=== PATIENT | female | born 1945 | race Caucasian/White ===

== ENCOUNTER → 2016-11-28 | Outpatient (CLI) | payer MEDICARE, OTHER ==
[~2016-11-28] MED LIST: ACETAMINOPHEN325 MG PO; ACIPHEX20 MG PO; ADVAIR 250-501 EAC1 IH; ADVAIR 250-501 EACH IH; ADVAIR 2501 DISK W/D PO; ALBUTEROL2.5 MG/0.5 IH; ALBUTEROL2.5 MG/0.5 INH; ALPRAZOLAM0.25 MG PO; AMLODIPINE BESY10 MG PO; AMLODIPINE BESYL5 MG PO; ANTIVERT PO; ASPIRIN PO; ASPIRIN81 M1 PO; ASPIRIN81 M2 PO; ASPIRIN81 MG PO; ATIVAN PO; BACLOFEN10 MG PO; BENZONATATE PO; BRILINTA90 MG PO; BUSPAR5 M2 PO; CALTRATE 600+D PO; CARAFATE1 G PO; CARVEDILOL3.125 MG PO; CARVEDILOL6.25 MG PO; CENTRUM PO; CLIMARA 0.050.05 MG EXT; COREG PO; COREG3.125 MG PO; COREG6.25 MG PO; DEXILANT60 MG PO; DILTIAZEM 24HR240 M1 PO; DILTIAZEM 24HR240 M2 PO; DILTIAZEM ER60 MG PO; DIPHENOXYLATE/A1 TA1 PO; DOXYCYCLINE HY100 M1 PO; EFFIENT10 MG PO; ERYTHROMYCIN250 M1 PO; FISH OIL 1,0001 CAP PO; FISH OIL 1,2001 CAP PO; FISH OIL 1,2001 EAC1 PO; FISH OIL 1,2001 EAC2 PO; FISH OIL 1,2001 EAC4 PO; FISH OIL300 MG PO; FLONASE 0.05% N16 G1; FOSAMAX70 MG PO; IMDUR PO; IMDUR-ER30 M1 PO; ISOSORBIDE DINI30 MG PO; LEVALBUTER1.25 MG/1 IH; LEVALBUTER1.25 MG/1 INH; LEVAQUIN PO; LEXAPRO PO; LIPITOR20 MG PO; LISINOPRIL10 MG PO; LISINOPRIL5 MG PO; MEDROL DOSEPAK4 MG PO; MOTION RELIEF25 MG PO; MULTI VITAMIN1 EACH PO; MULTI-VITAMIN1 EAC1 PO; MULTIVITAMIN1 UDCAP PO; NITROGLYGERIN0.4 MG SL; NITROGYLCERIN SUBLINGUAL; NORCO1 TAB 10/3 PO; OMEPRAZOLE40 M1 PO; OMEPRAZOLE40 MG PO; PANTOPRAZOLE SO40 MG; PAROXETINE HCL20 MG PO; PLAVIX PO; PREDNISONE10 MG PO; PRILOSEC PO; PRILOSEC40 MG PO; PROAIR HFA INH; PROAIR HFA8.5 GM IH; PROAIR INH; PROTONIX20 MG PO; SIMVASTATIN10 MG PO; SYMBICORT INH; TYLENOL #3 PO; TYLENOL325 M1 PO; VITAMIN E1000 UNI1 PO; XOPENEX45 MCG/15 IH; ZETIA PO; ZOCOR PO; ZOCOR10 MG PO
--- NOTE | ~2016-11-28 | CR63 ---
[facility] A Service of [facility] & [facility] RADIOLOGY TEXT RESULTS PATIENT: LAMONT MENJIVAR LOCATION: [facility] : 43 UNIT #: [id number] AGE: [address]: Violeta Mcghee MD SEX: F ORDER DR: [id number] [facility] [address] [facility]. [place], [place] [address] [id number] O MR#: [id number] Acc #: [id number] NAME: LAMONT MENJIVAR : 1945 SEX: F STUDY DATE/TIME: 11/28/2016 15:31 UNIT: [facility] ROOM: STUDY DESCRIPTION: CR Chest 2 View Attending Physician: Violeta Mcghee M.D. Referring Physician: Violeta Mcghee M.D. Ordering Physician: Violeta Mcghee M.D. Primary Care Physician: Violeta Mcghee M.D. MEDICAL IMAGING REPORT This report is preliminary unless electronic signature is present EXAM Chest PA and lateral, 11/28/2016 HISTORY Acute bronchospasm and bronchitis, cough and shortness of breath for 2 months since September 2016. Benign essential hypertension. FINDINGS Two views of the chest were obtained. The lungs are clear. The heart and mediastinum have a normal contour, and the heart size is normal. No pleural effusions are seen. The lungs are hyperinflated, consistent with chronic obstructive pulmonary disease. There is no evidence of active disease. IMPRESSION Chronic obstructive pulmonary disease. No active disease. Dictated by... Khurram Velasco M.D. THIS IS AN ELECTRONICALLY VERIFIED REPORT Khurram Velasco M.D. at 11/29/2016 8:30 AM LUZ/laverne TD: 11/28/2016 21:28 JOB #: [id number] MEDICAL IMAGING REPORT Page 1 of 1 COPY
== END | disposition home or self-care (01) ==
LOC: CRAD 15:19
DX: J20.9 Acute bronchitis, unspecified (principal); J44.0 Chronic obstructive pulmonary disease with (acute) lower respiratory infection
CPT/HCPCS: 71020

== ENCOUNTER → 2017-01-19 | Outpatient (CLI) | payer MEDICARE, OTHER ==
--- NOTE | ~2017-01-19 | MY11 ---
[facility] A Service of [facility] RADIOLOGY TEXT RESULTS PATIENT: LAMONT MENJIVAR LOCATION: [facility] : 41 UNIT #: [id number] AGE: [address]: Violeta Mcghee MD SEX: F ORDER DR: [id number] [place] [id number] O MR#: [id number] Acc #: [id number] NAME: LAMONT MENJIVAR : 1945 SEX: F STUDY DATE/TIME: 01/19/2017 10:17 UNIT: [facility] ROOM: STUDY DESCRIPTION: MY Mammogram Screening Dig Tino Attending Physician: Violeta Mcghee M.D. Referring Physician: Violeta Mcghee M.D. Ordering Physician: Violeta Mcghee M.D. Primary Care Physician: Violeta Mcghee M.D. MEDICAL IMAGING REPORT This report is preliminary unless electronic signature is present. EXAM Digital screening mammogram, 01/19/2017 HISTORY 71-year-old woman no risk elevation. Previous left breast biopsy. Annual screening. COMPARISON 04/04/2012, 05/30/2013 FINDINGS Digital imaging of each breast was completed utilizing screening protocol. Review includes FDA-approved CAD device. Breast parenchyma is extremely dense with generalized nodular parenchymal presentation and subareolar duct prominence bilaterally. There are a number of calcifications in both breasts however these have benign characteristics. I see no interval occurring mass. There are no suspicious microcalcifications and no suspicious architectural deformity. IMPRESSION Benign mammogram with very dense breast parenchyma. Annual screening recommended. Patients over the age of 40 are entered into a reminder system with target due date for the next mammogram. A result letter will also be sent to the patient. BIRADS: 2 Benign Finding Dictated by... Noé Griffin M.D. THIS IS AN ELECTRONICALLY VERIFIED REPORT [facility] A Service of [facility] RADIOLOGY TEXT RESULTS PATIENT: LAMONT MENJIVAR LOCATION: [facility] : 41 UNIT #: [id number] AGE: [address]: Violeta Mcghee MD SEX: F ORDER DR: Noé Griffin M.D. at 01/19/2017 12:13 PM Shayna TD: 01/19/2017 11:53 JOB #: [id number] MEDICAL IMAGING REPORT Page 1 of 1
--- NOTE | ~2017-01-19 | US128 ---
[id number] [address] [address] [id number] O MR#: [id number] Acc #: [id number] NAME: LAMONT MENJIVAR : 1945 SEX: F STUDY DATE/TIME: 01/19/2017 10:32 UNIT: [facility] ROOM: STUDY DESCRIPTION: Thyroid Attending Physician: Violeta Mcghee M.D. Referring Physician: Violeta Mcghee M.D. Ordering Physician: Violeta Mcghee M.D. Primary Care Physician: Violeta Mcghee M.D. MEDICAL IMAGING REPORT This report is preliminary unless electronic signature is present. EXAM Thyroid ultrasound 01/19/2017 HISTORY Solitary thyroid nodule. COMPARISON Thyroid ultrasound 07/17/2014, 01/09/2014. FINDINGS The right thyroid lobe measures 2.2 x 1.7 x 3.5 cm. The isthmus measures 5 mm thickness. The left thyroid lobe measures 1.4 x 1.3 x 4.2 cm. Multiple benign appearing hypoechoic colloid-type cysts are seen within both thyroid lobes. The dominant cyst within left thyroid lobe ylh-ys-[id number] pole very slightly larger than in 2014, currently measuring 9.2 x 10.1 x 16.9 mm compared to 10.2 x 12.8 x 8.0 mm. A dominant isthmic cyst appears relatively stable with at 8.8 x 4.0 x 9.0 mm, and a dominant cyst in the right mid thyroid lobe anteriorly measures approximately 5.5 x 8.2 x 9.9 mm, not significantly changed. No suspicious solid nodule is identified. There are no suspicious clustered microcalcifications seen. 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 However, these maintain benign appearing sonographic characteristics, and no new suspicious solid nodules are identified. Dictated by... Marivel Wing M.D. THIS IS AN ELECTRONICALLY VERIFIED REPORT Marivel Wing M.D. at 01/23/2017 8:40 AM RAVEN/bossman TD: 01/19/2017 16:47 JOB #: [id number] MEDICAL IMAGING REPORT Page 1 of 1
== END | disposition home or self-care (01) ==
LOC: SMAM 09:28 → SGUS 09:28 → SMAM 10:00
DX: Z12.31 Encounter for screening mammogram for malignant neoplasm of breast (principal); E04.1 Nontoxic single thyroid nodule
CPT/HCPCS: 76536; G0202